=== PATIENT | female | born 1945 | race Caucasian/White ===

== ENCOUNTER 2017-12-12 14:00 | Outpatient (RCR) | payer MEDICARE, OTHER | END 2017-12-12 14:30 | disposition home or self-care (01) | LOC: PT 14:00 | DX: M54.5 Low back pain (principal); M54.6 Pain in thoracic spine; G89.29 Other chronic pain | CPT/HCPCS: G8985-GP ==

== ENCOUNTER → 2018-02-20 | Outpatient (CLI) | payer MEDICARE, OTHER | LOC: PT 09:31 → EDSTATUS 09:31 → PT 09:51 | DX: Z01.818 Encounter for other preprocedural examination (principal); M17.11 Unilateral primary osteoarthritis, right knee ==

== ENCOUNTER 2018-04-05 13:30 | Outpatient (RCR) | payer MEDICARE, OTHER | END 2018-04-05 14:00 | disposition home or self-care (01) | LOC: PT 13:30 | DX: Z47.1 Aftercare following joint replacement surgery (principal); Z96.651 Presence of right artificial knee joint | CPT/HCPCS: G8978-GP; G8979-GP ==

== ENCOUNTER 2020-08-12 10:00 | Outpatient (RCR) | payer MEDICARE, OTHER | END 2020-09-11 16:00 | disposition home or self-care (01) | LOC: SPEECH 10:00 | DX: R41.3 Other amnesia (principal); R41.89 Other symptoms and signs involving cognitive functions and awareness ==